=== PATIENT | female | born 1960 | race Caucasian/White ===

== ENCOUNTER 2018-04-27 11:55 | Emergency (ER) | payer OTHER ==
[~2018-04-27] VITALS: Ht 175.3 cm; Wt 142.6 kg
[~2018-04-27 11:55] MED LIST: ALBUTEROL17 GM IH; BAL B-501 EACH PO; CALCIUM 500 MG1 EACH PO; DIOVAN160 MG PO; FLOVENT 11120 INHALA IH; FLOVENT 22120 INHALA IH; Flovent 220 mcg IH; METFORMIN HCL500 MG PO; METROGEL 1% KI1 EACH TP; Motrin PO; PATANASE30.5 GM NS; Proventil,Ventolin H IH; Tylenol Extra Streng PO; VITAMIN D31000 UNI2 PO; Vicodin,Lortab 5/500 PO; ZYRTEC10 M3 PO
[2018-04-27 12:43] LABS: HEMATOCRIT 46.4 % (36.0-46.0); HEMOGLOBIN 15.2 G/DL (11.9-15.5); MCH 27.9 PG (29.0-34.0); MCHC 32.8 G/DL (30.0-36.0); MCV 85.1 FL (83-99); PLATELET COUNT 226 K/uL (156-360); RBC DIS.WIDTH-CV 15.3 % (11.8-14.6); RBC DIS.WIDTH-SD 47.4 % (39-53); RED BLOOD COUNT 5.45 M/uL (3.80-5.20); WHITE BLOOD COUNT 10.8 K/uL (4.1-10.2)
[2018-04-27 12:58] LABS: CHLORIDE 106 mEq/L (99-109); POTASSIUM 4.5 mEq/L (3.7-5.4); SODIUM 142 mEq/L (136-147)
[2018-04-27 13:00] LABS: GLUCOSE 161 mg/dL (70-99)
[2018-04-27 13:02] LABS: APPEARANCE SL.HAZY ((CLEAR)); BILIRUBIN NEGATIVE; BLOOD MODERATE; COLOR YELLOW ((YELLOW)); GLUCOSE (STRIP) NEGATIVE; KETONES NEGATIVE; LEUKOCYTES TRACE; NITRITE NEGATIVE; PROTEIN (STRIP) 100; SPECIFIC GRAVITY 1.033 (1.000-1.030); UROBILINOGEN 0.2 MG/DL (0.2-1.0)
[2018-04-27 13:04] LABS: CREATININE 1.2 mg/dL (0.6-1.3); GFR ESTIMATE (CALCULATED) 49 mL/min/
[2018-04-27 13:05] LABS: UREA NITROGEN (BUN) 17 mg/dL (9-23)
[2018-04-27 13:08] LABS: BACTERIA 1+ /HPF; EPITHELIAL CELLS 1+ /HPF; MUCUS 2+ /LPF; RED BLOOD CELLS TNTC /HPF (0-5); UCUL ADDED? YES
[2018-04-27] MEDS ORDERED: KEFLEX500 MG PO (15:11)
[2018-04-27] MEDS ORDERED: ULTRAM50 MG PO (15:58)
[2018-04-27 16:10] VITALS: BP 117/58
== END 2018-04-27 16:12 | disposition home or self-care (01) ==
LOC: EME 11:55
DX: N39.0 Urinary tract infection, site not specified (principal); Z87.442 Personal history of urinary calculi; R11.2 Nausea with vomiting, unspecified; R19.7 Diarrhea, unspecified; N28.1 Cyst of kidney, acquired; N20.0 Calculus of kidney; K76.0 Fatty (change of) liver, not elsewhere classified; I10 Essential (primary) hypertension; J45.909 Unspecified asthma, uncomplicated; Z79.84 Long term (current) use of oral hypoglycemic drugs
CPT/HCPCS: 74176; 80048; 81003; 85027; 87086; 99281; 99285; J0696; J1885; J2765; J3010; J7030

== ENCOUNTER 2018-04-29 17:03 | Emergency (ER) | payer OTHER ==
[~2018-04-29] VITALS: Ht 175.3 cm; Wt 144.9 kg
[~2018-04-29 17:03] MED LIST changes: +KEFLEX500 MG PO; +ULTRAM50 MG PO
[2018-04-29 19:47] LABS: HEMATOCRIT 41.5 % (36.0-46.0); HEMOGLOBIN 13.8 G/DL (11.9-15.5); MCH 28.3 PG (29.0-34.0); MCHC 33.3 G/DL (30.0-36.0); PLATELET COUNT 203 K/uL (156-360); RBC DIS.WIDTH-CV 15.2 % (11.8-14.6); RED BLOOD COUNT 4.88 M/uL (3.80-5.20); WHITE BLOOD COUNT 12.5 K/uL (4.1-10.2)
[2018-04-29 19:55] LABS: ALBUMIN 4.1 g/dL (3.2-4.8); CHLORIDE 106 mEq/L (99-109); POTASSIUM 4.2 mEq/L (3.7-5.4); SODIUM 141 mEq/L (136-147)
[2018-04-29 19:56] LABS: APPEARANCE SL.HAZY ((CLEAR)); BILIRUBIN NEGATIVE; BLOOD NEGATIVE; COLOR AMBER ((YELLOW)); GLUCOSE (STRIP) NEGATIVE; KETONES 20; LEUKOCYTES NEGATIVE; NITRITE NEGATIVE; PROTEIN (STRIP) NEGATIVE; SPECIFIC GRAVITY 1.023 (1.000-1.030); UROBILINOGEN 0.2 MG/DL (0.2-1.0)
[2018-04-29 19:57] LABS: TOTAL PROTEIN 7.6 g/dL (6.4-8.3)
[2018-04-29 19:58] LABS: GLUCOSE 116 mg/dL (70-99)
[2018-04-29 19:59] LABS: TOTAL BILIRUBIN 0.6 mg/dL (0.0-1.0)
[2018-04-29 20:01] LABS: ALKALINE PHOSPHATASE 73 IU/L (3-129); CREATININE 1.4 mg/dL (0.6-1.3); GFR ESTIMATE (CALCULATED) 41 mL/min/
[2018-04-29 20:02] LABS: BACTERIA NONE SEEN /HPF; EPITHELIAL CELLS RARE /HPF; MUCUS TRACE /LPF; RED BLOOD CELLS 0-5 /HPF (0-5); UCUL ADDED? NO; WHITE BLOOD CELLS 0-5 /HPF (0-5)
[2018-04-29 20:02] LABS: UREA NITROGEN (BUN) 18 mg/dL (9-23)
[2018-04-29 20:03] LABS: AST (GOT) 33 IU/L (2-34)
[2018-04-29 20:04] LABS: ALT (GPT) 44 IU/L (3-49)
[2018-04-29 21:02] VITALS: BP 171/90
[2018-04-29] MEDS ORDERED: FLEXERIL10 MG PO (23:53)
[2018-04-29] MEDS ORDERED: PERCOCET 5/31 TABLET PO (23:54)
[2018-04-29] MEDS ORDERED: FLOMAX0.4 MG PO (23:55)
== END 2018-04-30 00:32 | disposition home or self-care (01) ==
LOC: EME 17:03
PROVIDERS: Nurse Practitioner Family
DX: N13.2 Hydronephrosis with renal and ureteral calculous obstruction (principal); J45.909 Unspecified asthma, uncomplicated; I10 Essential (primary) hypertension; Z87.442 Personal history of urinary calculi; Z87.440 Personal history of urinary (tract) infections; Z79.84 Long term (current) use of oral hypoglycemic drugs
CPT/HCPCS: 74176; 80053; 81003; 85027; 87086; J1885; J2405